=== PATIENT | female | born 1990 | race Caucasian/White ===

== ENCOUNTER 2020-05-07 18:10 | Emergency (ER) | payer BC, OTHER ==
[~2020-05-07] VITALS: Ht 167.6 cm; Wt 54.5 kg
--- NOTE | 2020-05-07 18:27 | PHYS DOC ---
Past History Past Medical History: Migraines Past Surgical History: No Surgical History Smoking: Non-smoker Alcohol Use: None Drug Use: None General Adult EDM: Chief Complaint: CHEST PAIN HPI: HPI: Patient is a 30 female that presents with chest pressure that is substernal and on the right side that is been going off and on for last couple weeks. Patient describes as pressure type pain that is moderate in nature and worse with laying back. Patient states the pain got worse today at 445 this afternoon. Patient states the pain has resulted some tingling in her arms. Patient has a shortness of breath, nausea, vomiting. Patient seen by her primary care doctor and sent here for abnormal EKG patient has a family history of [id number] and has had for episodes of palpitations in the past but has never been diagnosed with an arrhythmia. Review of Systems: Review of Systems: Constitutional: Denies fever or chills Eyes: Denies change in visual acuity HENT: Denies nasal congestion or sore throat Respiratory: Denies cough or shortness of breath Cardiovascular: Complains of chest pain but no edema GI: Denies abdominal pain, nausea, vomiting, bloody stools or diarrhea : Denies dysuria Musculoskeletal: Denies back pain or joint pain Integument: Denies rash Neurologic: Denies headache, focal weakness or sensory changes Endocrine: Denies polyuria or polydipsia Lymphatic: Denies swollen glands Psychiatric: Denies depression or anxiety Heart Score: HEART Score for Chest Pain: HEART Score for Chest Pain Response (Comments) Value History Slighlty/Non-Suspicious 0 ECG Normal 0 Age < 45 0 Risk Factors No Risk Factors 0 Troponin < Normal Limit 0 Total 0 Risk Factors: Risk Factors: DM, Current or recent (<one month) smoker, HTN, HLP, family history of CAD, obesity. Risk Scores: Score 0 - 3: 2.5% MACE over next 6 weeks - Discharge Home Score 4 - 6: 20.3% MACE over next 6 weeks - Admit for Clinical Observation Score 7 - 10: 72.7% MACE over next 6 weeks - Early Invasive Strategies Allergies: Allergies: Allergies Coded Allergies Type Severity Reaction Last Updated Verified caffeine Allergy Unknown 05/07/20 No naproxen Allergy Unknown 05/07/20 No sumatriptan Allergy Unknown 05/07/20 No Physical Exam: PE: Constitutional: Well developed, well nourished, no acute distress, non-toxic appearance. HENT: No trismus, external ears normal Eyes: Conjunctiva clear, EOMI Neck: Normal range of motion, no tenderness, supple, no stridor. Cardiovascular: Regular rate/rhythm, peripheral pulse intact, PAPER PATTERN INSPECTOR intact Lungs & Thorax: No respiratory distress Abdomen: No distension, nontender Skin: Diffuse: Intact, no rash Back: Full ROM Extremities: Normal inspection, no edema Neurologic: Alert and oriented X 3, normal motor function, , no focal deficits noted. Psychologic: Affect normal, judgement normal, mood normal. Current Patient Data: Labs: Laboratory Tests Test 05/07/20 18:35 White Blood Count 6.4 x10^3/uL Red Blood Count 4.24 x10^6/uL Hemoglobin 13.1 g/dL Hematocrit 39.2 % Mean Corpuscular Volume 93 fL Mean Corpuscular Hemoglobin 31 pg Mean Corpuscular Hemoglobin Concent 34 g/dL Red Cell Distribution Width 13.7 % Platelet Count 271 x10^3/uL Neutrophils (%) (Auto) 51 % Lymphocytes (%) (Auto) 41 % Monocytes (%) (Auto) 6 % Eosinophils (%) (Auto) 1 % Basophils (%) (Auto) 1 % Neutrophils # (Auto) 3.2 x10^3uL Lymphocytes # (Auto) 2.6 x10^3/uL Monocytes # (Auto) 0.4 x10^3/uL Eosinophils # (Auto) 0.1 x10^3/uL Basophils # (Auto) 0.1 x10^3/uL D-Dimer (Ailyn) < 0.19 mg/L Sodium Level 138 mmol/L Potassium Level 3.5 mmol/L Chloride Level 103 mmol/L Carbon Dioxide Level 25 mmol/L Anion Gap 10 Blood Urea Nitrogen 13 mg/dL Creatinine 1.0 mg/dL Estimated GFR (Cockcroft-Gault) 64.7 BUN/Creatinine Ratio 13 Glucose Level 101 mg/dL Calcium Level 8.9 mg/dL Total Bilirubin 0.3 mg/dL Aspartate Amino Transf (AST/SGOT) 20 U/L Alanine Aminotransferase (ALT/SGPT) 13 U/L Alkaline Phosphatase 39 U/L Troponin I Quantitative < 0.017 ng/mL Total Protein 7.0 g/dL Albumin 3.5 g/dL Albumin/Globulin Ratio 1.0 Serum Test, Qualitative Negative Vital Signs: Vital Signs Date Time Temp Pulse Resp B/P (MAP) Pulse Ox O2 Delivery O2 Flow Rate FiO2 05/07/20 18:18 98.1 93 21 137/70 (92) 100 Room Air EKG: EKG: [] EKG interpreted by me normal sinus rhythm with a rate 83 normal axis short UT interval nonspecific ST changes Radiology/Procedures: Radiology/Procedures: [][address] [id number] IMAGING REPORT Signed PATIENT: KAVON FULTON ACCOUNT: [id number] : 1990 LOCATION: ER AGE: 30 SEX: F EXAM STATUS: REG ER ORD. PHYSICIAN: JOSE GUTIERREZ MD REASON: Chest pain PROCEDURE: PORTABLE CHEST 1V Exam: Chest one view INDICATION: Chest pain TECHNIQUE: Frontal view of the chest Comparisons: None FINDINGS: The cardiomediastinal silhouette and pulmonary vessels are within normal limits. The lung and pleural spaces are clear. IMPRESSION: No acute cardiopulmonary process. Electronically signed by: Rajinder Mcgovern MD (05/07/2020 7:46 PM) [id number] DICTATED AND SIGNED BY: RAJINDER MCGOVERN MD DATE: 05/07/201945 CC: JOSE GUTIERREZ MD; RAYSA BURGESS MD ~ Course & Med Decision Making: Course & Med Decision Making Pertinent Labs and Imaging studies reviewed. (See chart for details) [] 30-year-old female presents with atypical chest pain. Patient's EKG showed no ischemic changes. But I discussed with her the short UT interval and the family history of WPW and need for cardiac follow-up. Patient has a negative d- dimer and normal chest x-ray. Doubt pneumothorax or pulmonary effusion. Negative d-dimer and no risk factors and normal cardiac silhouette, I doubt thoracic aortic dissection. Patient states the pain is worse when she leans back which indicates there may be some mild pericarditis. Patient was placed on anti-inflammatories and return precautions given. Dragon Disclaimer: Dragon Disclaimer: This electronic medical record was generated, in whole or in part, using a voice recognition dictation system. Departure Departure: Impression: Primary Impression: Chest pain Disposition: HOME/RESIDENCE PRIOR TO ADM Condition: STABLE Referrals: RAYSA BURGESS MD (PCP) 2 to 3 days RAMONA BLANCHARD MD 2-3 days Patient Instructions: Chest Pain (Nonspecific) Additional Instructions: EMERGENCY DEPARTMENT GENERAL DISCHARGE INSTRUCTIONS THANK YOU for coming to the Emergency Department (ED) today and trusting us with your care. We trust that you had a positive experience in our Emergency Department. YOUR FOLLOW UP INSTRUCTIONS ARE FOLLOWS: Do you have a private doctor? If you do not have a private doctor, please ask for a resource list of physicians or clinics that may be able to assist you with follow up care. The Emergency Physician has interpreted your x-rays. The X-ray specialist will also review them. If there is a change in the findings you will be notified in 48 hours when at all possible. A lab test or lab culture may have been done, your results will be reviewed and you will be notified if you need a change in treatment. ADDITIONAL INSTRUCTIONS AND INFORMATION Your care today has been supervised by a physician who is specially trained in emergency care. Many problems require more than one evaluation for a complete diagnosis and treatment. We recommend that you schedule your follow up appointment as recommended to ensure complete treatment of your illness or injury. If you are unable to obtain follow up care and continue to have a problem, or if your condition worsens we recommend that you return to the ED. We are not able to safely determine your condition over the phone nor are we able to give sound medical advice over the phone. For these safety reasons, if you call for medical advice we will ask you to come to the ED for further evaluation If you have any questions regarding these discharge instructions please call the ED at . SAFETY INFORMATION In the interest of safety, wellness, and injury prevention; we encourage you to wear your seatbelt, if you smoke; quit smoking, and we encourage your family to use protective helmet for bicycling and other sporting events that present an increased risk for head injury. IF YOUR SYMPTOMS WORSEN OR NEW SYMPTOMS DEVELOP, OR YOU HAVE CONCERNS ABOUT YOUR CONDITION; OR IF YOUR CONDITION WORSENS WHILE YOU ARE WAITING FOR YOUR FOLLOW UP APPOINTMENT; EITHER CONTACT YOUR PRIMARY CARE DOCTOR, THE PHYSICIAN WHOSE NAME AND NUMBER YOU WERE GIVEN, OR RETURN TO THE ED IMMEDIATELY. Justification of Admission: Justification of Admission: Justification of Admission Dx: N/A JOSE GUTIERREZ MD May 07, 2020 18:27
[2020-05-07 18:58] LABS: BASO # 0.1 x10^3/uL (0.0-0.2); BASO % 1 % (0-3); EOS # 0.1 x10^3/uL (0.0-0.7); EOS % 1 % (0-3); HEMATOCRIT 39.2 % (36.0-47.0); HEMOGLOBIN 13.1 g/dL (12.0-15.5); LYMPH # 2.6 x10^3/uL (1.0-4.8); LYMPH % 41 % (24-48); MEAN CORPUSCULAR HEMOGLOBIN 31 pg (25-35); MEAN CORPUSCULAR HGB CONC 34 g/dL (31-37); MEAN CORPUSCULAR VOLUME 93 fL (79-100); MONO # 0.4 x10^3/uL (0.0-1.1); MONO % 6 % (0-9); NEUT # 3.2 x10^3uL (1.8-7.7); NEUT % 51 % (31-73); PLATELET COUNT 271 x10^3/uL (140-400); RED BLOOD COUNT 4.24 x10^6/uL (3.50-5.40); RED CELL DISTRIBUTION WIDTH 13.7 % (11.5-14.5); WHITE BLOOD COUNT 6.4 x10^3/uL (4.0-11.0)
[2020-05-07 19:10] LABS: CALCIUM 8.9 mg/dL (8.5-10.1); GFR 64.7; POTASSIUM 3.5 mmol/L (3.5-5.1)
[2020-05-07 19:15] LABS: ALBUMIN 3.5 g/dL (3.4-5.0); PREG TEST PT QUAL NEGATIVE (NEG); TOTAL BILIRUBIN 0.3 mg/dL (0.2-1.0)
--- NOTE | 2020-05-07 19:49 | RAD ---
Exam: Chest one view INDICATION: Chest pain TECHNIQUE: Frontal view of the chest Comparisons: None FINDINGS: The cardiomediastinal silhouette and pulmonary vessels are within normal limits. The lung and pleural spaces are clear. IMPRESSION: No acute cardiopulmonary process. Electronically signed by: Rajinder Aguilera MD (05/07/2020 7:46 PM) [id number]
[2020-05-07 20:20] VITALS: BP 117/66
--- NOTE | 2020-05-08 03:02 | EKG ---
[address] [address] Test Date: 2020-05-07 Test Time: 18:17:40 Pat Name: KAVON FULTON Department: Room: Gender: F [employer]: : 1990 Requested By: JOSE GUTIERREZ Order Number: [id number] Reading MD: Measurements Intervals [place] Rate: 83 P: 60 [place]: 110 QRS: 82 QRSD: 84 T: 26 QT: 372 QTc: 438 Interpretive Statements SINUS RHYTHM NO SPECIFIC ECG ABNORMALITIES RI6.02 No previous ECG available for comparison
== END 2020-05-07 20:40 | disposition home or self-care (01) ==
LOC: ER 18:10
DX: R07.89 Other chest pain (principal); R06.02 Shortness of breath; R11.2 Nausea with vomiting, unspecified; G43.909 Migraine, unspecified, not intractable, without status migrainosus; Z88.8 Allergy status to other drugs, medicaments and biological substances
CPT/HCPCS: 36415; 71045; 80053; 84484; 84703; 85025; 85379; 93005; 99285